=== PATIENT | female | born 2000 ===

== ENCOUNTER 2024-03-14 | Outpatient (REF) | payer SELFPAY ==
--- OUTSIDE RECORDS SUMMARY | 2024-03-15 13:36 | XMS_ITS | Encounter Summary ---
Author Organization [employer] [facility] Address [address] [place] [address] Care Team Providers Care Concrete Finisher Apprentice Name Role Phone [facility] Primary Care Provider [phone] Encounter Details Date Type Department Care Team [...] Description 05/22/2024 11:00 AM EDT Office Visit [facility] [address] [place] [address] Nikki Glez [address] [place] [address] documented as of this encounter Visit Diagnoses Not on filedocumented in this encounter Care Teams Concrete Finisher Apprentice Relationship Specialty Start Date End Date [facility] [address] [place] [address] PCP - General Family Medicine 05/21/22 03/13/24 documented as of this encounter
--- OUTSIDE RECORDS SUMMARY | 2024-03-15 13:36 | XMS_ITS | Encounter Summary ---
Author Organization [facility] Address [address] [place] [address] Care Team Providers Care Sign Hanger Name Role Phone Unavailable Primary Care Provider Unavailabl e Encounter Details Date Type Department Care Team (Late st Contact Info) Description 03/14/2024 Telephone [facility] [address] [place], [place] [phone] Aristides Gomez MD [address] [place], [place] [phone] Social History Tobacco Use Types Packs/Day Years [...] Description 05/22/2024 11:00 AM EDT Office Visit [facility] [address] [place] [address] Nikki Glez [address] [place], [place] [phone] documented as of this encounter Visit Diagnoses Not on filedocumented in this encounter
--- OUTSIDE RECORDS SUMMARY | 2024-03-15 13:37 | XMS_ITS | Encounter Summary ---
Author Organization [facility] Address [address] [address] [facility] [address] [address] [address] [place] [address] Care Team Providers Care Recruitment Specialist Name Role Phone Unavailable Primary Care Provider Unavailabl e Reason for Visit * Reason Comments Abdominal Pain Cough Encounter Details Date Type Department Care Team (Late st Contact Info) Description 03/14/2024 4:20 PM EST Office Visit [facility] [address] [place] [phone] Aristides Gomez MD [address] [place] [address] Influenza A (Primary Dx); Abdominal pain, unspecified [...] Healthy. No Hosp/Surg/Meds. NKDA. Transferring care from [place]. H/o and SAB. Has Nexplanon x 2 yrs. SH-Lives in [place] with mother. Review of Systems Constitutional: Negative [...] Description 05/22/2024 11:00 AM EDT Office Visit [facility] [address] [place] [address] [phone] [place], Nikki [address] [place], [place] [phone] Scheduled Orders Name Type Priority Associated Diagnoses Orde r Schedule RPR (Monitor) with Reflex to??Titer Lab Routine Screening examination for STI Expected: 03/14/2024, Expires: 03/14/2025 T-SPOT??.TB Lab Routine Rib pain Ordered: 03/14/2024 documented as of this encounter Procedures Procedure Name Priority Date/Time Associated Diagnosis Comments XR CHEST 2 VIEWS Routine 03/15/2024 9:06 AM EST Rib pain CBC WITH AUTO DIFFERENTIAL Routine 03/15/2024 8:45 AM EST Abdominal pain, unspecified abdominal location HEPATITIS C AB W/REFL TO HCV RNA, QN, PCR Routine 03/15/2024 8:45 AM EST Screening examination for STI IRON AND TOTAL IRON BINDING CAPACITY Routine 03/15/2024 8:45 AM EST Abdominal pain, unspecified abdominal location CHLAMYDIA/N. GONORRHOEAE RNA, TMA, UROGENITAL Routine 03/15/2024 8:45 AM EST Abdominal pain, unspecified abdominal location HEPATITIS B SURFACE ANTIGEN, EIA Routine 03/15/2024 8:45 AM EST Screening examination for STI HIV 1/2 ANTIGEN/ANTIBODY, FOURTH GENERATION W/RFL Routine 03/15/2024 8:45 AM EST Screening examination for STI C-REACTIVE PROTEIN Routine 03/15/2024 8: 45 AM EST Abdominal pain, unspecified abdominal location LIPASE Routine 03/15/2024 8:45 AM EST Abdominal pain, unspecified abdominal location COMPREHENSIVE METABOLIC PANEL Routine 03/15/2024 8:45 AM EST Abdominal pain, unspecified abdominal location POCT URINALYSIS DIPSTICK Routine 03/14/2024 4:43 PM [...] location documented in this encounter Results * XR Chest 2 Views (03/15/2024 9:06 AM EST) Anatomical Region Laterality Modality Chest Radiographic Zina ging 03/15/2024 9:06 AM EST Narrative 03/15/2024 9:46 AM EST ? [facility] ?[address] ?[place] [address] ?XRay Report ? Signed ? Patient: Sainz Kemp,Citlaly ?MR ?? #: [id number] ? : 2000 ?Acct:[id number] ? Age/Sex: 23 / F ?ADM Date: 02/05/25 ? Loc: HO.HHCL ? Attending Dr: Aristides Gomez MD ? Ordering Physician: ARISTIDES GOMEZ MD ?? Date of Service: 03/15/24 ?? Procedure(s): XR chest 2V ?? Accession Number(s): [id number] ? cc: ARISTIDES GOMEZ MD ? EXAMINATION: ?? XR CHEST ? CLINICAL INFORMATION: ?? Left chest/rib pain with inspiration. Recent coughing and Flu. ? COMPARISON: ?? None available. ? TECHNIQUE: ?? 2 views of the chest were obtained. ? FINDINGS: ?? No consolidation, pleural effusion or pneumothorax. ?? Cardiomediastinal silhouette is normal. ?? S-shaped curvature of the thoracic spine. ? XR/XR chest 2V ?? IMPRESSION: ?? No acute airspace disease. ?? Thoracic scoliosis, mild. ? Electronically signed by: ??Vicente Grace MD ??03/15/2024 09:43 AM ?? EST RP ? Dictated By: ?Vicente Otero MD ? Signed By: ?<Electronically signed by Vicente Barton MD in OV> ? 03/15/24 0943 ? DD/ 5 ? TD/TT: 03/15/24919 ? Tram Inspector: ? Procedure Note Dontommieter, Image - 03/15/2024 [place] [address] XRay Report Signed Patient: Citlaly OconnorMR #: [id number] : 2000Acct:[id number] Age/Sex: 23 FADM Date: 03/15/24 Loc: HO.HHCL Attending Dr: Aristides Gomez MD Ordering Physician: ARISTIDES GOMEZ MD Date of Service: 03/15/24 Procedure(s): XR chest 2V Accession Number(s): [id number] cc: ARISTIDES GOMEZ MD EXAMINATION: XR CHEST CLINICAL INFORMATION: Left chest/rib pain with inspiration. Recent coughing and Flu. COMPARISON: None available. TECHNIQUE: 2 views of the chest were obtained. FINDINGS: No consolidation, pleural effusion or pneumothorax. Cardiomediastinal silhouette is normal. S-shaped curvature of the thoracic spine. XR/XR chest 2V IMPRESSION: No acute airspace disease. Thoracic scoliosis, mild. Electronically signed by: Vicente Grace MD 03/15/2024 09:43 AM EST RP Dictated By: Vicente Otero MD Signed By: <Electronically signed by Vicente Barton MDin OV> 03/15/24942 DD/ 5 TD/TT: 03/15/24 0920 Tram Inspector: us Aristides Gomez MD IMG XR PROCEDURES Edited Result - Final * Lipase (03/15/2024 8:45 AM EST) Lipase 13 8 - 78 U/L [facility] Blood Venous blood specimen / Unknown 03/15/2024 8:45 AM EST 03/15/2024 10:51 AM EST us Aristides Gomez MD LAB BLOOD ORDERABLES Final Resu lt Performing Organization Address [facility] Co de Phone Number [facility] [address] [place] [phone] * C-reactive Protein (03/15/2024 8:45 AM EST) Pathologist [facility] C Reactive Protein 0.48 < or = 0.50 mg/dL [facility] Blood Venous blood specimen / Unknown 03/15/2024 8:45 AM EST 03/15/2024 10:51 AM EST us Aristides Gomez MD LAB BLOOD ORDERABLES Final Resu lt Performing Organization Address [facility] Phone Number [facility] [address] [place] [phone] * Hepatitis C Antibody with Reflex to HCV, RNA, Quantitative, Real-Time PCR (03/15/2024 8:45 AM EST) Pathologist [facility] Hepatitis C Antibody Nonreactive Nonreactive [facility] Comment:Antibodies to HCV no t detected; does not exclude early acuteHCV infection. Blood Venous blood specimen / Unknown 03/15/2024 8:45 AM EST 03/15/2024 10:51 AM EST us Aristides Gomez MD LAB BLOOD ORDERABLES Final Resu lt Performing Organization Address [facility] Co de Phone Number [facility] [address] [place] [phone] * Hepatitis B surface antigen (03/15/2024 8:45 AM EST) Hepatitis B Surface Ag Negative Negative [facility] Blood Venous blood specimen / Unknown 03/15/2024 8:45 AM EST 03/15/2024 10:51 AM EST us Aristides Gomez MD LAB BLOOD ORDERABLES Final Resu lt [facility] [address] [place] [phone] * HIV-1/2 Antigen and Antibodies, Fourth Generation, with Reflexes (03/15/2024 8:45 AM EST) Pathologist [facility] HIV AB/AG Nonreactive Nonreactive [facility] Comment:HIV-1 p24 Ag and/or HIV-1/HIV-2 Ab not detected.A test result that is nonreactive does not exclude thepossibility of exposure to or infection with HIV-1 and/orHIV-2. Nonreactive results in this assay for individualswith prior exposure to HIV-1 and/or HIV-2 may be due toantigen and antibody levels that are below the limit ofdetection of this assay.The AdRoll HIV Ag/Ab Combo assay result andsupplemental assay results should be interpreted inconjunction with the patient's clinical presentation,history and other laboratory results. If the results areinconsistent with clinical evidence, additional testing issuggested to confirm the result. Blood Venous blood specimen / Unknown 03/15/2024 8:45 AM EST 03/15/2024 10:51 AM EST us Aristides Gomez MD LAB BLOOD ORDERABLES Final Resu lt [facility] [address] [place] [phone] * (ABNORMAL) Iron And Total Iron Binding Capacity (03/15/2024 8:45 AM EST) Iron 40 30 - 160 mcg/dL [facility] Total Iron Binding Capacity 308 228 - 428 mcg/dL [facility] Percent Iron Saturation 13(L) 15 - 50 % [facility] Unsaturated Iron Binding 268 ug/dL [facility] Blood Venous blood specimen / Unknown 03/15/2024 8:45 AM EST 03/15/2024 10:51 AM EST us Aristides Gomez MD LAB BLOOD ORDERABLES Final Resu lt [facility] [address] [place], [place] [phone] * (ABNORMAL) Comprehensive Metabolic Panel (03/15/2024 8:45 AM EST) Pathologist [facility] Sodium 139 135 - 145 mmol/L [facility] Potassium 3.8 3.3 - 5.1 mmol/L [facility] Chloride 109(H) 96 - 108 mmol/L [facility] Carbon Dioxide 25 22 - 29 mmol/L [facility] Anion Gap 9(L) 12 - 20 [facility] Urea Nitrogen (BUN) 7(L) 9 - 16 mg/dL [facility] Creatinine, Serum 0.76 0.5 - 1.4 mg/dL [facility] Estimated Glomerular Filt Rate >60 [facility] Comment:Chronic Kidney Disea se: Estimated GFR < 60 mL/min/1.12q5Jnwwwy Kidney Disease: Estimated GFR < 15 mL/min/1.73m2 Glucose 114 60 - 115 mg/dL [facility] Calcium 9.0 8.4 - 10.2 mg/dL [facility] Bilirubin, Total 0.2 0.0 - 1.0 mg/dL [facility] Aspartate Amino Transferase 23 5 - 31 U/L [facility] Alanine Aminotransferase 16 0 - 31 U/L [facility] Total Protein 7.4 6.5 - 8.0 g/dL [facility] Albumin Level 4.3 3.5 - 5.0 g/dL [facility] Alkaline Phosphatase 67 39 - 117 U/L [facility] Blood Venous blood specimen / Unknown 03/15/2024 8:45 AM EST 03/15/2024 10:51 AM EST Aristides Gomez MD LAB BLOOD ORDERABLES Final Resu lt [facility] [address] [place] [address] [phone] * (ABNORMAL) CBC auto differential (03/15/2024 8:45 AM EST) White Blood Count 4.9 4.8 - 10.8 X10*3/uL [facility] Red Blood Count 4.75 4.20 - 5.50 X10*6/uL [facility] Hemoglobin 14.0 12.0 - 16.0 g/dl [facility] Hematocrit 42.3 37.0 - 47.0 % [facility] Mean Corpuscular Volume 89.1 80.0 - 98.0 fL [facility] Mean Corpuscular Hemoglobin 29.5 27.0 - 33.0 pg [facility] Mean Corpuscular HGB Conc 33.1 31.0 - 35.0 g/dl [facility] Red Cell Distribution Width 12.8 11.0 - 16.0 % [facility] Platelet Count 186 160 - 400 X10*3/uL [facility] Mean Platelet Volume 11.0 9.4 - 12.3 fL [facility] Neutrophils Percent Auto 56.0 45 - 73 % [facility] Imm Gran Pct Auto 0.2 0.0 - 0.4 % [facility] Lymphocytes Percent Auto 27.0 20 - 40 % [facility] Monocytes Percent Auto 8.2 2 - 11 % [facility] Eosinophils Percent Auto 8.4(H) 0 - 4 % [facility] Basophils Percent Auto 0.2 0 - 2 % [facility] NRBC Pct Auto 0.0 0.0 - 0.2 /100WBC [facility] Neutrophils Absolute Auto 2.7 2.0 - 8.3 x10*3/uL [facility] Imm Gran Abs Auto 0.01 0.00 - 0.03 X10*3/uL [facility] Lymphocytes Absolute Auto 1.3 1.2 - 4.9 X10*3/uL [facility] Monocytes Absolute Auto 0.4 0.1 - 1.2 X10*3/uL [facility] Eosinophils Absolute Auto 0.4 0.0 - 0.4 X10*3/uL [facility] Basophils Absolute Auto 0.0 0.0 - 0.2 X10*3/uL [facility] NRBC Abs Auto 0.000 0.0 - 0.012 X10*3/uL [facility] Blood Venous blood specimen / Unknown 03/15/2024 8:45 AM EST 03/15/2024 10:51 AM EST us Aristides Gomez MD LAB BLOOD ORDERABLES Final Resu lt [facility] [address] [place] [address] [phone] * Chlamydia/N. Gonorrhoeae RNA, TMA, Urogenitial (03/15/2024 8:45 AM EST) CT PCR NOT DETECTED Not Detect. [facility] Comment:A not detected test result does not exclude the possibilityof infection because test results can be affected byimproper specimen collection, concurrent antibiotic therapy,or the number of organisms in the specimen which may bebelow the sensitivity of the test. As with many diagnostictests, results from the Xpert CT/NG assay should beinterpreted in conjunction with other laboratory andclinical data available to the clinician.Xpert CT/NG performance has not been evaluated in patientsless than 14 years of age. The assay should not be used forthe evaluationof suspected sexual abuse or for other medico-legalindications. Additional testing is recommended in anycircumstance when false positive or false negative resultscould lead to adverse medical, social or psychologicalconsequences. NG PCR NOT DETECTED Not Detect. [facility] Comment:A not detected test result does not exclude the possibilityof infection because test results can be affected byimproper specimen collection, concurrent antibiotic therapy,or the number of organisms in the specimen which may bebelow the sensitivity of the test. As with many diagnostictests, results from the Xpert CT/NG assay should beinterpreted in conjunction with other laboratory andclinical data available to the clinician.Xpert CT/NG performance has not been evaluated in patientsless than 14 years of age. The assay should not be used forthe evaluationof suspected sexual abuse or for other medico-legalindications. Additional testing is recommended in anycircumstance when false positive or false negative resultscould lead to adverse medical, social or psychologicalconsequences. Swab Vaginal structure / Unknown 03/15/2024 8:45 AM EST 03/15/2024 10:56 AM EST Narrative [facility] - 03/15/2024 1:01 PM EST Urine us Aristides Gomez MD LAB MICROBIOLOGY - [facility] Final Result [facility] [address] [place] [address] [phone] * (ABNORMAL) POCT urinalysis dipstick manually resulted [...] ID NOW (03/14/2024 4:02 PM EST) Pathologist [facility] Coronavirus Antigen PCR Negative Negative, Indeterminate, None Detected, Invalid, Specimen unsatisfactory for evaluation, Weakly Positive Swab 03/14/2024 4:02 PM EST us Aristides Gomez MD POINT OF CARE TEST ENTER/EDIT O RDERABLES Final Result * (ABNORMAL) Influenza A (ID NOW Rapid Molecular) (03/14/2024 4:02 PM EST) Pathologist [facility] Influenza A Positive( A) Negative, Indeterminate [facility] Swab 03/14/2024 4:02 PM EST us Aristides Gomez MD POINT OF CARE TEST ENTER/EDIT O RDERABLES Final Result [facility] [address] [place] [phone] * Influenza B (ID NOW Rapid Molecular) (03/14/2024 4:02 PM EST) Pathologist [facility] Influenza B Negative Negative, Indeterminate [facility] Swab 03/14/2024 4:02 PM EST us Aristides Gomez MD POINT OF CARE TEST ENTER/EDIT O RDERABLES Final Result Performing Organization Address [facility]/ZIP Co de Phone Number [facility] [address] [place] [phone] documented in this encounter Visit Diagnoses Diagnosis Influenza A- Primary Influenza with other respiratory manifestations Abdominal pain, unspecified abdominal location Rib pain Unspecified chest pain Screening examination for STI documented in this encounter
--- OUTSIDE RECORDS SUMMARY | 2024-03-15 13:37 | XMS_ITS | Encounter Summary ---
Author Organization [facility] Address [address] [place] [address] Care Team Providers Care Enchilada Maker Name Role Phone Unavailable Primary Care Provider Unavailabl e Reason for Visit * Reason Onset Date Comments New patient appt. 03/15/2024 Encounter Details Date Type Department Care Team ([facility] st Contact Info) Description 03/15/2024 Telephone [facility] [address] [place], [place] [phone] Jasen Jose MD [address] [place], [place] [phone] New patient appt. Social History Tobacco Use [...] 03/15/2024 8:29 AM EST Patient added to [facility] New patient wait list as of 03/14/24. [...] Description 05/22/2024 11:00 AM EDT Office Visit [facility] [address] [place] [address] Nikki Glez [address] [place] [phone] documented as of this encounter Visit Diagnoses Not on filedocumented in this encounter
--- OUTSIDE RECORDS SUMMARY | 2024-03-15 13:37 | XMS_ITS | Encounter Summary ---
Author Organization [facility] Address [address] [place] [address] Care Team Providers Care Bicycle Assembler Name Role Phone Unavailable Primary Care [...] Description 05/22/2024 11:00 AM EDT Office Visit [facility] [address] [place], [place] [phone] Nikki Glez [address] [place], [place] [phone] documented as of this encounter Visit Diagnoses Not on filedocumented in this encounter
--- OUTSIDE RECORDS SUMMARY | 2024-03-15 13:37 | XMS_ITS | Clinical Summary ---
Author Organization [employer] [facility] Address [address] [place] [address] Care Team Providers Care Supervisor Prop Making Name Role Phone Unavailable Primary Care Provider [...] Type Department Care Team Description 03/15/2024 Telephone [facility] [address] [place] [phone] Jasen Jose MD New patient appt. 03/14/2024 4:20 PM EST Office Visit [facility] [address] [place] [phone] Aristides Gomez MD Influenza A (Primary Dx); Abdominal pain, unspecified abdominal location; Rib pain; Screening examination for STI 03/14/2024 Telephone [facility] [address] [place] [phone] Aristides Gomez MD 03/14/2024 Travel from Last [...] Description 05/22/2024 11:00 AM EDT Office Visit [facility] [address] [place] [phone] Nikki Glez [address] [place] [phone] Health Maintenance Due Date Last Done Comments Chlamydia and Gonorrhea Screening 2002 03/15/2024 Depression Screening 2002 SDOH Screening 2002 Alcohol/Substance Use Screening 2014 Family Planning (PISQ) 2017 HPV Vaccines (1 - 3-dose series) 2017 Hepatitis B Vaccines (1 of 3 - 19+ 3-dose series) 2021 Pap Smear 08/04/2023 COVID-19 Vaccine ( season) 2023 07/18/2020, 06/27/2020 Influenza Vaccine (#1) [...] older (1 - 1-dose 75+ series) 2077 HIV Screening Completed 03/15/2024 Hepatitis C Screening Completed 03/15/2024 HIB Vaccines Aged Out No longer eligi [...] Routine 03/15/2024 9:06 AM EST Rib pain LIPASE Routine 03/15/2024 8:45 AM EST Abdominal pain, unspecified abdominal location C-REACTIVE PROTEIN Routine 03/15/2024 8: 45 AM [...] AM EST Abdominal pain, unspecified abdominal location CBC WITH AUTO DIFFERENTIAL Routine 03/15/2024 8:45 AM EST Abdominal pain, unspecified abdominal location HEPATITIS B SURFACE ANTIGEN, EIA Routine 03/15/2024 8:45 AM EST Screening examination for STI CHLAMYDIA/N. GONORRHOEAE RNA, TMA, UROGENITAL Routine 03/15/2024 [...] Recently Relevant to Health Maintenance Results * XR Chest 2 Views (03/15/2024 9:06 AM EST) Anatomical Region Laterality Modality Chest Radiographic Zina ging 03/15/2024 9:06 AM EST Narrative 03/15/2024 9:46 AM EST ? [facility] ?[address] ?[place] [address] ?XRay Report ? Signed ? Patient: Citlaly Oconnor ?MR ?? #: [id number] ? : 2000 ?Acct:[id number] ? Age/Sex: 23 / F ?ADM Date: 03/15/24 ? Loc: HO.[facility]CL ? Attending Dr: Aristides Gomez MD ? Ordering Physician: ARISTIDES GOMEZ MD ?? Date of Service: 03/15/24 ?? Procedure(s): XR chest 2V ?? Accession Number(s): [id number] ? cc: ARISTIDES GOMEZ MD ? EXAMINATION: [...] in OV> ? 03/15/24 0943 ? DD/ 0906 ? TD/TT: 03/15/24 0920 ? Pharmacoepidemiologist: ? Procedure Note Natalee, Xochilt - 03/15/2024 [id number] [place] [address] XRay Report Signed Patient: Citlaly OconnorMR #: [id number] : 2000Acct:[id number] Age/Sex: 23 / FADM Date: 03/15/24 Loc: .[facility] Attending Dr: Aristides Gomez MD Ordering Physician: ARISTIDES GOMEZ MD Date of Service: 03/15/24 Procedure(s): XR chest 2V Accession Number(s): [id number] cc: ARISTIDES GOMEZ MD EXAMINATION: XR CHEST [...] Vicente Grace MD 03/15/2024 09:43 AM EST Dictated By: Vicente Otero MD Signed By: <Electronically signed by Vicente Barton MDin OV> 03/15/2443 DD/ 0906 TD/TT: 03/15/24 0920 Pharmacoepidemiologist: Aristides Gomez MD IMG XR PROCEDURES Edited Result - Final * (ABNORMAL) CBC auto differential (03/15/2024 8:45 AM EST) White Blood Count 4.9 4.8 - 10.8 X10*3/uL [facility] Red Blood Count 4.75 4.20 - 5.50 X10*6/uL [facility] Hemoglobin 14.0 12.0 - 16.0 g/dl [facility] Hematocrit 42.3 37.0 - 47.0 % [facility] Mean Corpuscular Volume 89.1 80.0 - 98.0 fL [facility] Mean Corpuscular Hemoglobin 29.5 27.0 - 33.0 pg [facility] Mean Corpuscular HGB Conc 33.1 31.0 - 35.0 g/dl [facility] Red Cell Distribution Width 12.8 11.0 - 16.0 % [facility] Platelet Count 186 160 - 400 X10*3/uL [facility] Mean Platelet Volume 11.0 9.4 - 12.3 fL [facility] Neutrophils Percent Auto 56.0 45 - 73 % [facility] Imm Gran Pct Auto 0.2 0.0 - 0.4 % [facility] Lymphocytes Percent Auto 27.0 20 - 40 % [facility] Monocytes Percent Auto 8.2 2 - 11 % [facility] Eosinophils Percent Auto 8.4(H) 0 - 4 % [facility] Basophils Percent Auto 0.2 0 - 2 % [facility] NRBC Pct Auto 0.0 0.0 - 0.2 /100WBC [facility] Neutrophils Absolute Auto 2.7 2.0 - 8.3 x10*3/uL [facility] Imm Gran Abs Auto 0.01 0.00 - 0.03 X10*3/uL [facility] Lymphocytes Absolute Auto 1.3 1.2 - 4.9 X10*3/uL [facility] Monocytes Absolute Auto 0.4 0.1 - 1.2 X10*3/uL [facility] Eosinophils Absolute Auto 0.4 0.0 - 0.4 X10*3/uL [facility] Basophils Absolute Auto 0.0 0.0 - 0.2 X10*3/uL [facility] NRBC Abs Auto 0.000 0.0 - 0.012 X10*3/uL [facility] Blood Venous blood specimen / Unknown 03/15/2024 8:45 AM EST 03/15/2024 10:51 AM EST us Aristides Gomez MD LAB BLOOD ORDERABLES Final Resu lt [facility] [address] [place] [phone] * Hepatitis C Antibody with Reflex to HCV, RNA, Quantitative, Real-Time PCR (03/15/2024 8:45 AM EST) [facility] Hepatitis C Antibody Nonreactive Nonreactive [facility] Comment:Antibodies to HCV no t detected; does not exclude early acuteHCV infection. Blood Venous blood specimen / Unknown 03/15/2024 8:45 AM EST 03/15/2024 10:51 AM EST us Aristides Gomez MD LAB BLOOD ORDERABLES Final Resu lt Performing Organization Address [facility] de Phone Number [facility] [address] [place] [phone] * (ABNORMAL) Iron And Total Iron Binding Capacity (03/15/2024 8:45 AM EST) [facility] Iron 40 30 - 160 mcg/dL [facility] Total Iron Binding Capacity 308 228 - 428 mcg/dL [facility] Percent Iron Saturation 13(L) 15 - 50 % [facility] Unsaturated Iron Binding 268 ug/dL [facility] Blood Venous blood specimen / Unknown 03/15/2024 8:45 AM EST 03/15/2024 10:51 AM EST us Aristides Gomez MD LAB BLOOD ORDERABLES Final Resu lt Performing Organization Address [facility] de Phone Number [facility] [address] [place] [phone] * Chlamydia/N. Gonorrhoeae RNA, TMA, Urogenitial (03/15/2024 8:45 AM EST) [facility] CT PCR NOT DETECTED Not Detect. [facility] Comment:A not detected test result [...] psychologicalconsequences. NG PCR NOT DETECTED Not Detect. [facility] Comment:A not detected test result [...] AM EST 03/15/2024 10:56 AM EST Narrative [facility] - 03/15/2024 1:01 PM EST Urine us Aristides Gomez MD LAB MICROBIOLOGY - GENERAL DAVEY BUSTOS Final Result [facility] [address] [place] [phone] * Hepatitis B surface antigen (03/15/2024 8:45 AM EST) Hepatitis B Surface Ag Negative Negative [facility] Blood Venous blood specimen / Unknown 03/15/2024 8:45 AM EST 03/15/2024 10:51 AM EST us Aristides Gomez MD LAB BLOOD ORDERABLES Final Resu lt Performing Organization Address [facility]/ZIP Co de Phone Number [facility] [address] [place] [phone] * HIV-1/2 Antigen and Antibodies, Fourth Generation, with Reflexes (03/15/2024 8:45 AM EST) HIV AB/AG Nonreactive Nonreactive [facility] Comment:HIV-1 p24 Ag and/or HIV-1/HIV-2 Ab not detected.A test result that is nonreactive does not exclude thepossibility of exposure to or infection with HIV-1 and/orHIV-2. Nonreactive results in this assay for individualswith prior exposure to HIV-1 and/or HIV-2 may be due toantigen and antibody levels that are below the limit ofdetection of this assay.The Reeher HIV Ag/Ab Combo assay result andsupplemental assay results should be interpreted inconjunction with the patient's clinical presentation,history and other laboratory results. If the results areinconsistent with clinical evidence, additional testing issuggested to confirm the result. Blood Venous blood specimen / Unknown 03/15/2024 8:45 AM EST 03/15/2024 10:51 AM EST us Aristides Gomez MD LAB BLOOD ORDERABLES Final Resu lt Performing Organization Address [facility] Co de Phone Number [facility] [address] [place] [phone] * C-reactive Protein (03/15/2024 8:45 AM EST) C Reactive Protein 0.48 < or = 0.50 mg/dL [facility] Blood Venous blood specimen / Unknown 03/15/2024 8:45 AM EST 03/15/2024 10:51 AM EST us Aristides Gomez MD LAB BLOOD ORDERABLES Final Resu lt Performing Organization Address City/[facility]/ZIP Co de Phone Number [facility] [address] [place] [phone] * Lipase (03/15/2024 8:45 AM EST) Lipase 13 8 - 78 U/L [facility] Blood Venous blood specimen / Unknown 03/15/2024 8:45 AM EST 03/15/2024 10:51 AM EST Aristides Gomez MD LAB BLOOD ORDERABLES Final Resu lt [facility] [address] [place] [phone] * (ABNORMAL) Comprehensive Metabolic Panel (03/15/2024 8:45 AM EST) Pathologist [facility] Sodium 139 135 - 145 mmol/L [facility] Potassium 3.8 3.3 - 5.1 mmol/L [facility] Chloride 109(H) 96 - 108 mmol/L [facility] Carbon Dioxide 25 22 - 29 mmol/L [facility] Anion Gap 9(L) 12 - 20 [facility] Urea Nitrogen (BUN) 7(L) 9 - 16 mg/dL [facility] Creatinine, Serum 0.76 0.5 - 1.4 mg/dL [facility] Estimated Glomerular Filt Rate >60 [facility] Comment:Chronic Kidney Disea se: Estimated GFR < 60 mL/min/[id number] Kidney Disease: Estimated GFR < 15 mL/min/1.73m2 Glucose 114 60 - 115 mg/dL [facility] Calcium 9.0 8.4 - 10.2 mg/dL [facility] Bilirubin, Total 0.2 0.0 - 1.0 mg/dL [facility] Aspartate Amino Transferase 23 5 - 31 U/L [facility] Alanine Aminotransferase 16 0 - 31 U/L [facility] Total Protein 7.4 6.5 - 8.0 g/dL [facility] Albumin Level 4.3 3.5 - 5.0 g/dL [facility] Alkaline Phosphatase 67 39 - 117 U/L [facility] Blood Venous blood specimen / Unknown 03/15/2024 8:45 AM EST 03/15/2024 10:51 AM EST us Aristides Gomez MD LAB BLOOD ORDERABLES Final Resu lt Performing Organization Address [facility]/ZIP Co de Phone Number [facility] [address] [place] [phone] * (ABNORMAL) POCT urinalysis dipstick manually [...] PM EST) Influenza B Negative Negative, Indeterminate [facility] Swab 03/14/2024 4:02 PM EST us Aristides Gomez MD POINT OF CARE TEST ENTER/EDIT O RDERABLES Final Result Performing Organization Address [facility]/ZIP Co de Phone Number [facility] [address] [place] [address] [phone] * (ABNORMAL) Influenza A (ID NOW Rapid Molecular) (03/14/2024 4:02 PM EST) Influenza A Positive( A) Negative, Indeterminate [facility] Swab 03/14/2024 4:02 PM EST us Aristides Gomez MD POINT OF CARE TEST ENTER/EDIT O RDERABLES Final Result [facility] [address] [place] [phone] * POCT COVID-19 Ag Mijares ID NOW (03/14/2024 4:02 PM EST) Coronavirus Antigen PCR Negative Negative, Indeterminate, None [...] from Last 3 Months Insurance , [address] , [address] [address] [facility] FULL DENTAL-[facility] MEDICAID STAND ADULT DENTAL-[place] [employer] LIMITED ADULT DENTAL - [facility] FULL (MEDICAID)
== END 2024-03-14 00:01 | disposition home or self-care (01) ==
LOC: HO.HHCLNP
PROVIDERS: Visit Provider Pediatrics
DX: Z13.89 Encounter for screening for other disorder (principal)

== ENCOUNTER 2024-03-15 08:40 | Outpatient (REF) | payer SELFPAY ==
--- NOTE | ~2024-03-15 | XR_ITS ---
EXAMINATION: XR CHEST CLINICAL INFORMATION: Left chest/rib pain with inspiration. Recent coughing and Flu. COMPARISON: None available. TECHNIQUE: 2 views of the chest were obtained. FINDINGS: No consolidation, pleural effusion or pneumothorax. Cardiomediastinal silhouette is normal. S-shaped curvature of the thoracic spine. XR/XR chest 2V IMPRESSION: No acute airspace disease. Thoracic scoliosis, mild. Electronically signed by: Vicente Grace MD 03/15/2024 09:43 AM [place]
--- OUTSIDE RECORDS SUMMARY | 2024-03-15 08:44 | XMS_ITS | Encounter Summary ---
Author Organization [facility] [facility] Address [address] [facility] [address] [place] [address] Care Team Providers Care Sales Estimator Name Role Phone [facility] Primary Care Provider [phone] Encounter Details Date Type Department Care Team (Latest Contact Info) Description 07/31/2021 Abstract [facility] Dental, Provider, DDS Social History Tobacco Use Types Packs/Day Years Used Date Smoking Tobacco: Never Assessed Comments Unknown Sex and Gender Information Value Date Recorded Sex Assigned at Female 04/01/2022 3:22 PM EST Legal Sex Female 5:36 PM EDT Gender Identity Female 04/01/2022 3:22 PM EST Sexual Orientation Don't know 03/20/2023 10 :28 AM EST Sexual Orientation Straight 03/20/2023 10 :28 AM EST documented as of this encounter Plan of Treatment Upcoming Encounters Date Type Department Care Team (Late st Contact Info) Description 05/22/2024 11:00 AM EDT Office Visit [facility] [address] [place] [address] Nikki Glez [address] [place] [address] documented as of this encounter Visit Diagnoses Not on filedocumented in this encounter Care Teams Sales Estimator Relationship Specialty Start Date [facility] [address] [place] [address] PCP - General Family Medicine 05/21/22 03/13/24 documented as of this encounter
--- OUTSIDE RECORDS SUMMARY | 2024-03-15 08:44 | XMS_ITS | Clinical Summary ---
Author Organization [employer] [facility] Address [address] [facility] [address] [place] [address] Care Team Providers Care Patient Information Coordinator Name Role Phone Unavailable Primary Care Provider Unavailabl e Allergies No known active allergies Medications etonogestrel-eluti ng 68 mg contraceptive implant 1 each by Implant route 1 (one) time. Active acetaminophen (Tylenol Extra Strength) 500 MG tabletIndications: Rib pain 1 tab q 4 hours prn fever or pain 30 tablet 1 Active Active Problems No known active problems Resolved Problems Problem Noted Date Diagnosed Date Resolved Date Miscarriage 11/09/2019 03/14/2024 Encounters Date Type Department Care Team Description 03/15/2024 Telephone [facility] [address] [place] [phone] Jasen Jose MD New patient appt. 03/14/2024 4:20 PM EST Office Visit [facility] [address] [place] [phone] Aristides Gomez MD Influenza A (Primary Dx); Abdominal pain, unspecified abdominal location; Rib pain; Screening examination for STI 03/14/2024 Telephone [facility] [address] [place] [phone] Aristides Gomez MD 03/14/2024 Travel from Last 3 Months Immunizations Name Administration Dates Next Due INFLUENZA INJECTABLE QUADRIV ALANT CCIIV4 MDCK Multi-dose vial 03/17/2023 Pfizer Covid-19 Vaccine 12+ 07/18/2020, Tdap 03/17/2023 Family History Medical History Relation Name Comments Diabetes Maternal Grandmother Heart disease Maternal Grandmother Diabetes Mother Hypothyroidism Mother Breast cancer Mother's Sister Relation Name Status Comments Maternal Grandmother Mother Mother's Sister Social History Tobacco Use Types Packs/Day Years Used Date Smoking Tobacco: Never Passive Smoke Exposure: Never Smokeless Tobacco: Never Tobacco Cessation:Counseling Given: Not Answered Alcohol Use Standard Drinks/Week Comments Never 0 (1 standard drink = 0.6 oz pur e alcohol) Comments Unknown Sex and Gender Information Value Date Recorded Sex Assigned at Female 04/01/2022 3:22 PM EST Legal Sex Female 5:36 PM EDT Gender Identity Female 04/01/2022 3:22 PM EST Sexual Orientation Don't know 03/20/2023 10 :28 AM EST Sexual Orientation Straight 03/20/2023 10 :28 AM EST Last Filed Vital Signs Vital Sign Reading Time Taken Comments Blood Pressure 120/70 03/14/2024 3:55 PM EST Pulse 102 03/14/2024 3:55 PM EST Temperature 36.7 ??C (98 ??F) 03/14/2024 3:55 PM EST Respiratory Rate 19 03/14/2024 3:55 PM EST Oxygen Saturation 97% 03/14/2024 3:55 PM EST Inhaled Oxygen Concentration - - Weight 78.5 kg (173 lb) 03/14/2024 3:55 PM EST Height 160.3 cm (5' 3.1 ) 03/14/2024 3:55 PM EST Body Mass Index 30.55 03/14/2024 3:55 PM EST Plan of Treatment Upcoming Encounters Date Type Department Care Team (Late st Contact Info) Description 05/22/2024 11:00 AM EDT Office Visit [facility] [address] [place] [phone] Nikki Glez [address] [place] [phone] Health Maintenance Due Date Last Done Comments Chlamydia and Gonorrhea Screening 2002 Depression Screening 2002 HIV Screening 2002 SDOH Screening 2002 Alcohol/Substance Use Screening 2014 Family Planning (PISQ) 2017 HPV Vaccines (1 - 3-dose series) 2017 Hepatitis C Screening 2020 Hepatitis B Vaccines (1 of 3 - 19+ 3-dose series) 2021 Pap Smear 08/04/2023 COVID-19 Vaccine ( - season) 2023 07/18/2020, 06/27/2020 Influenza Vaccine (#1) 2023 03/17/2023 Dental X-Ray: Bitewings 03/17/2024 03/16/19 24, 07/31/2021, 07/26/2017 Dental Oral Exam 05/18/2024 11/17/2023, 07/2023, 07/31/2021, Additional history exists Dental Prophylaxis 05/18/2024 11/17/2023, 0 03/16/2023, 07/31/2021, Additional history exists Tobacco Screening 03/14/2025 03/14/2024 Dental X-Ray: Full Mouth 11/17/2026 024, 07/31/2021, 07/26/2017 DTaP/Tdap/Td Vaccines (2 - Td or Tdap) 03/17/2033 03/17/2023 Zoster Vaccines (1 of 2) 2052 RSV Patients and Patients Aged 60 years or older (1 - 1-dose 75+ series) 2077 HIB Vaccines Aged Out No longer eligi ble based on patient's age to complete this topic Hepatitis A Vaccines Aged Out No long er eligible based on patient's age to complete this topic IPV Vaccines Aged Out No longer eligi ble based on patient's age to complete this topic Meningococcal Vaccine Aged Out No amber henry eligible based on patient's age to complete this topic Pneumococcal Vaccine: Pediatrics (0 to 5 Years) and At-Risk Patients (6 to 49) Years) Aged Out No longer eligible based on patient's age to complete this topic RSV under 20 months Aged Out No longe r eligible based on patient's age to complete this topic Rotavirus Vaccines Aged Out No longer eligible based on patient's age to complete this topic Procedures Procedure Name Priority Date/Time Associated Diagnosis Comments POCT URINALYSIS DIPSTICK Routine 03/14/2024 4:43 PM EST Abdominal pain, unspecified abdominal location POCT , URINE Routine 03/14/2024 4:02 PM EST Abdominal pain, unspecified abdominal location POCT COVID-19 AG MIJARES ID NOW Routine 03/14/2024 4:02 PM EST Influenza A POCT INFLUENZA A (ID NOW RAPID MOLECULAR) Routine 03/14/2024 4:02 PM EST Influenza A POCT INFLUENZA B (ID NOW RAPID MOLECULAR) Routine 03/14/2024 4:02 PM EST Influenza A PROPHYLAXIS - ADULT Routine 11/17/2023 1 :00 PM EDT PANORAMIC RADIOGRAPHIC IMAGE Routine 11/17/2023 1:00 PM EDT COMPREHENSIVE ORAL EVALUATION - NEW OR ESTABLISHED PATIENT Routine 11/17/2023 1:00 PM EDT BITEWINGS - 4 RADIOGRAPHIC IMAGES Routine 03/16/2023 10:00 AM EST from Last 3 Months or Most Recently Relevant to Health Maintenance Results * (ABNORMAL) POCT urinalysis dipstick manually resulted (03/14/2024 4:43 PM EST) Color, UA Yellow Clarity, UA Clear Glucose, UA Negative Bilirubin, UA Moderate Comment:small Ketones, UA Positive Comment:40mg/dL Spec Grav, UA 1.030 Blood, UA Positive(A) Negative, None Detected Comment:trace-intact pH, UA 5.5 Protein, UA Trace Urobilinogen, UA 0.2 Leukocytes, UA Negative Negative, Rare, Trace Nitrite, UA Negative Negative, None Detected Appearance, UA clear QC Media Lot # [id number] Lot# Expiration Date Urine 03/14/2024 4:43 PM EST us Aristides Gomez MD POINT OF CARE TEST ENTER/EDIT O RDERABLES Final Result * Influenza B (ID NOW Rapid Molecular) (03/14/2024 4:02 PM EST) Influenza B Negative Negative, Indeterminate [facility] Swab 03/14/2024 4:02 PM EST us Aristides Gomez MD POINT OF CARE TEST ENTER/EDIT O RDERABLES Final Result [facility] [address] [place] [phone] * (ABNORMAL) Influenza A (ID NOW Rapid Molecular) (03/14/2024 4:02 PM EST) Influenza A Positive( A) Negative, Indeterminate [facility] Swab 03/14/2024 4:02 PM EST us Aristides Gomez MD POINT OF CARE TEST ENTER/EDIT O RDERABLES Final Result Performing Organization Address City/[facility]/ZIP Co de Phone Number [facility] [address] [place] [address] [phone] * POCT COVID-19 Ag Mijares ID NOW (03/14/2024 4:02 PM EST) Pathologist [facility] Coronavirus Antigen PCR Negative Negative, Indeterminate, None Detected, Invalid, Specimen unsatisfactory for evaluation, Weakly Positive Swab 03/14/2024 4:02 PM EST us Aristides Gomez MD POINT OF CARE TEST ENTER/EDIT O RDERABLES Final Result * POCT , urine manually resulted (03/14/2024 4:02 PM EST) Preg Test, Ur Negative Negative, Indeterminate, None Detected, Invalid, Specimen unsatisfactory for evaluation, Weakly Positive Urine 03/14/2024 4:02 PM EST us Aristides Gomez MD POINT OF CARE TEST ENTER/EDIT O RDERABLES Final Result from Last 3 Months Insurance , [address] [address] HSN FULL [facility] LIMITED HSN FULL DENTAL-[facility] MEDICAID [place] [address] [place] [phone] DENTAL-[facility] MEDICAID LIMITED ADULT DENTAL - HSN FULL (MEDICAID)
--- OUTSIDE RECORDS SUMMARY | 2024-03-15 08:44 | XMS_ITS | Encounter Summary ---
Author Organization [employer] [facility] Address [address] [facility] [address] [place] [address] Care Team Providers Care Public Health Technician Name Role Phone Unavailable Primary Care Provider Unavailabl e Reason for Visit * Reason Onset Date Comments New patient appt. 03/15/2024 Encounter Details Date Type Department Care Team ([facility] st Contact Info) Description 03/15/2024 Telephone [facility] [address] [place], [place] [phone] Jasen Jose MD [address] [place], [place] [phone] New patient appt. Social History Tobacco Use Types Packs/Day Years Used Date Smoking Tobacco: Never Passive Smoke Exposure: Never Smokeless Tobacco: Never Alcohol Use Standard Drinks/Week Comments Never 0 [...] AM EST documented as of this encounter Miscellaneous Notes * Telephone Encounter - Marylin Lane - 03/15/2024 8:29 AM EST Patient added to [facility] New patient wait list as of 03/14/24. * Telephone Encounter - Marylin Lane - 03/15/2024 8:29 AM EST ----- Message from Aristides Gomez MD sent at 03/14/2024 6:50 PM EST ----- Regarding: New Patient Appt Please Thank you ! documented in this encounter Plan of Treatment Upcoming Encounters Date Type Department Care Team (Late st Contact Info) Description 05/22/2024 11:00 AM EDT Office Visit [facility] [address] [place] [address] Nikki Glez [address] [place] [address] documented as of this encounter Visit Diagnoses Not on filedocumented in this encounter
--- OUTSIDE RECORDS SUMMARY | 2024-03-15 08:44 | XMS_ITS | Encounter Summary ---
Author Organization [facility] Address [address] [facility] [facility] [address] [place] [address] Care Team Providers Care Brush Holder Assembler Name Role Phone Unavailable Primary Care Provider Unavailabl e Encounter Details Date Type Department Care Team (Latest Contact Info) Description 03/14/2024 Travel Social History Tobacco Use Types Packs/Day Years [...] Description 05/22/2024 11:00 AM EDT Office Visit [facility] [address] [place], [place] [phone] Nikki Glez [address] [place], [place] [phone] documented as of this encounter Visit Diagnoses Not on filedocumented in this encounter
--- OUTSIDE RECORDS SUMMARY | 2024-03-15 08:44 | XMS_ITS | Encounter Summary ---
Author Organization [employer] [facility] Address [address] [facility] [address]t [place] [address] Care Team Providers Care Street Light Repairer Name Role Phone Unavailable Primary Care Provider Unavailabl e Encounter Details Date Type Department Care Team (Late st Contact Info) Description 03/14/2024 Telephone [facility] [address] [place], [place] [phone] Aristides Gomez MD [address] [place], [place] [phone] Social History Tobacco Use Types Packs/Day Years [...] encounter Miscellaneous Notes * Telephone Encounter - Carol Ann Gary [place] - 03/14/2024 4:16 PM EST PT needs a new pt appt documented in this encounter Plan of Treatment Upcoming Encounters Date Type Department Care Team (Late st Contact Info) Description 05/22/2024 11:00 AM EDT Office Visit [facility] [address] [place] [address] Nikki Glez [address] [place], [place] [phone] documented as of this encounter Visit Diagnoses Not on filedocumented in this encounter
--- OUTSIDE RECORDS SUMMARY | 2024-03-15 08:45 | XMS_ITS | Encounter Summary ---
Author Organization [employer] [facility] Address [address] [place] [address] Care Team Providers Care Bench Worker Name Role Phone Unavailable Primary Care Provider Unavailabl e Reason for Visit * Reason Comments Abdominal Pain Cough Encounter Details Date Type Department Care Team (Late st Contact Info) Description 03/14/2024 4:20 PM EST Office Visit [facility] [address] [place] [phone] Aristides Gomez MD [address] [place] [address] Influenza A (Primary Dx); Abdominal pain, unspecified abdominal location; Rib pain; Screening examination for STI Social History Tobacco Use Types Packs/Day Years [...] AM EST documented as of this encounter Last Filed Vital Signs Vital Sign Reading [...] Mass Index 30.55 03/14/2024 3:55 PM EST documented in this encounter Progress Notes * Josefa Cosby - 03/14/2024 4:20 PM EST Subjective Patient ID: Citlaly Kemp V is a 23 y.o. female who presents for Abdominal Pain and Cough. New patient. Here in [facility] today with lower abdominal pain, left side pain and cough. Here with mother. Has had cough for 2 months. It has been improving. 2 weeks ago started with intermittent left rib pain with inspiration. No trauma. 4 days ago started with lower abdominal pain and vomiting (resolved). Also with cough 4 days ago. Has had some pain with urination, denies dysuria, but feels pelvic pressure with urination. Hx of sexual activity. Denies vaginal discharge. No recent STI screening. Same partner for last 5 years. Decreased appetite. Drinking well and good uop. Deniesfever or diarrhea. PMH- Healthy. No Hosp/Surg/Meds. NKDA. Transferring care from [place]. H/o and SAB. Has Nexplanon x 2 yrs. SH-Lives in [place] with mother. Review of Systems Constitutional: Negative for fever. HENT: Negative for rhinorrhea and sore throat. Eyes: Negative for visual disturbance. Respiratory: Positive for cough. Negative for shortness of breath. Gastrointestinal: Positive for abdominal pain. Negative for diarrhea and vomiting. Musculoskeletal: Negative for back pain. Left side pain. Skin: Negative for rash. Psychiatric/Behavioral: Negative for behavioral problems. Objective Physical Exam Constitutional: General: She is not in acute distress (Comfortable. Easily answers questions.). HENT: Right Ear: Tympanic membrane normal. Left Ear: Tympanic membrane normal. Nose: No rhinorrhea. Mouth/Throat: Mouth: Mucous membranes are moist. Pharynx: Oropharynx is clear. Eyes: Conjunctiva/sclera: Conjunctivae normal. Cardiovascular: Rate and Rhythm: Normal rate and regular rhythm. Heart sounds: No murmur heard. Pulmonary: Effort: Pulmonary effort is normal. No respiratory distress. Breath sounds: Normal breath sounds. No wheezing or rales. Comments: Mild left rib cage pain with inspiration. Abdominal: General: Bowel sounds are normal. Palpations: Abdomen is soft. Tenderness: There is no abdominal tenderness. There is no guarding or rebound. Musculoskeletal: Cervical back: Neck supple. Comments: Mild tenderness to left lower lateral rib cage. Skin: General: Skin is warm. Capillary Refill: Capillary refill takes less than 2 seconds. Findings: No rash. Neurological: Mental Status: She is alert and oriented to person, place, and time. Psychiatric: Behavior: Behavior normal. Assessment/Plan Diagnoses and all orders for this visit: Influenza A Having cough, abdominal pain and vomiting. Vomiting has resolved. Mild sxs. Acting well and hydrated. Flu A positive, COVID rapid testing neg. Not in window for Tamiflu. Symptoms seem to be improving. -Symptomatic relief including (vaporizer, honey/lemon, elevation) discussed. -Acetaminophen prn. -Push fluids. -RTC or ED if respiratory distress, unable to take fluids, decreased u/o, no improvement, worse or concerns. - Influenza B (ID NOW Rapid Molecular) - Influenza A (ID NOW Rapid Molecular) - POCT COVID-19 Ag Mijares ID NOW Abdominal pain, unspecified abdominal location Recent lower abdominal pain and left side pain. No vaginal symptoms, but has pelvic pressure with urination. HCG neg. Will r/o STI. -GC/CT self swab. Venous STI labs. -HCG neg. UA c/w concentration (SG 1.030, tr bld, mild ketones, mod bili, tr protein). LE and Nitrite neg. -CBC, Chem Panel, CRP, Lipase. -Further plan based on results. - POCT , urine manually resulted Rib pain Seems musculoskeletal with pain on palpation and inspiration. H/o prolonged cough that is improving. -CXR. -T-spot. -Tylenol prn. -RTC if no improvement. Screening examination for STI -GC/CT self swab done. -Venous STI labs ordered. -Further plan based on results. Josefa May, serve as a scribe. I document services personally performed by Dr. Aristides Gomez, based on the patient's response to questions by provider and provider's statements to me. Josefa Cosby [employer] ([employer]) documented in this encounter Plan of Treatment Upcoming Encounters Date Type Department Care Team (Late st Contact Info) Description 05/22/2024 11:00 AM EDT Office Visit [facility] [address] [place] [phone] Nikki Glez [address] [place], [place] [phone] Scheduled Orders Name Type Priority Associated Diagnoses Orde r Schedule Chlamydia/N. Gonorrhoeae RNA, TMA, Urogenitial Microbiology Routine Abdominal pain, unspecified abdominal location Ordered: 03/14/2024 XR Chest 2 Views Imaging Routine Rib pain Expected: 03/14/2024, Expires: 03/14/2025 CBC auto differential Lab Routine Abdominal pain, unspecified abdominal location Expected: 03/14/2024 (Approximate), Expires: 03/14/2025 Comprehensive Metabolic Panel Lab Routine Abdominal pain, unspecified abdominal location Expected: 03/14/2024 (Approximate), Expires: 03/14/2025 Iron And Total Iron Binding Capacity Lab Routine Abdominal pain, unspecified abdominal location Expected: 03/14/2024, Expires: 03/14/2025 HIV-1/2 Antigen and Antibodies, Fourth Generation, with Reflexes Lab Routine Screening examination for STI Expected: 03/14/2024 (Approximate), Expires: 03/14/2025 Hepatitis B surface antigen Lab Routine Screening examination for STI Ordered: 03/14/2024 Hepatitis C Antibody with Reflex to HCV, RNA, Quantitative, Real-Time PCR Lab Routine Screening examination for STI Expected: 03/14/2024, Expires: 03/14/2025 RPR (Monitor) with Reflex to??Titer Lab Routine Screening examination for STI Expected: 03/14/2024, Expires: 03/14/2025 C-reactive Protein Lab Routine Abdominal pain, unspecified abdominal location Expected: 03/14/2024 (Approximate), Expires: 03/14/2025 Lipase Lab Routine Abdominal pain, unspecified abdominal location Expected: 03/14/2024, Expires: 03/14/2025 T-SPOT??.TB Lab Routine Rib pain Ordered: 03/14/2024 documented as of this encounter Procedures Procedure Name Priority Date/Time Associated Diagnosis Comments POCT URINALYSIS DIPSTICK Routine 03/14/2024 4:43 PM EST Abdominal pain, unspecified abdominal location POCT INFLUENZA B (ID NOW RAPID MOLECULAR) Routine 03/14/2024 4:02 PM EST Influenza A POCT INFLUENZA A (ID NOW RAPID MOLECULAR) Routine 03/14/2024 4:02 PM EST Influenza A POCT COVID-19 AG MIJARES ID NOW Routine 03/14/2024 4:02 PM EST Influenza A POCT , URINE Routine 03/14/2024 4:02 PM EST Abdominal pain, unspecified abdominal location documented in this encounter Results * (ABNORMAL) POCT urinalysis dipstick manually [...] ENTER/EDIT O RDERABLES Final Result * POCT COVID-19 Ag Mijares ID NOW (03/14/2024 4:02 PM EST) [facility] Coronavirus Antigen PCR Negative Negative, Indeterminate, None Detected, Invalid, Specimen unsatisfactory for evaluation, Weakly Positive Swab 03/14/2024 4:02 PM EST us Aristides Gomez MD POINT OF CARE TEST ENTER/EDIT O RDERABLES Final Result * (ABNORMAL) Influenza A (ID NOW Rapid Molecular) (03/14/2024 4:02 PM EST) [facility] Influenza A Positive( A) Negative, Indeterminate [facility] Swab 03/14/2024 4:02 PM EST us Aristides Gomez MD POINT OF CARE TEST ENTER/EDIT O RDERABLES Final Result Performing Organization Address City/[facility]/ZIP Co de Phone Number [facility] [address] [place] [phone] * Influenza B (ID NOW Rapid Molecular) (03/14/2024 4:02 PM EST) [facility] Influenza B Negative Negative, Indeterminate [facility] Swab 03/14/2024 4:02 PM EST us Aristides Gomez MD POINT OF CARE TEST ENTER/EDIT O RDERABLES Final Result Performing Organization Address [facility]/ZIP Co de Phone Number [facility] [address] [place] [phone] documented in this encounter Visit Diagnoses Diagnosis Influenza A- Primary Influenza with other respiratory manifestations Abdominal pain, unspecified abdominal location Rib pain Unspecified chest pain Screening examination for STI documented in this encounter
[2024-03-15 10:57] LABS: MANUAL DIFF FLAG NO
[2024-03-15 11:02] LABS: Basophils Percent Auto 0.2 % (0-2); Eosinophils Absolute Auto 0.4 X10*3/uL (0.0-0.4); Eosinophils Percent Auto 8.4 % (0-4); Hematocrit 42.3 % (37.0-47.0); Imm Gran Abs Auto 0.01 X10*3/uL (0.00-0.03); Imm Gran Pct Auto 0.2 % (0.0-0.4); Lymphocytes Absolute Auto 1.3 X10*3/uL (1.2-4.9); Mean Corpuscular HGB Conc 33.1 g/dl (31.0-35.0); Mean Corpuscular Hemoglobin 29.5 pg (27.0-33.0); Mean Corpuscular Volume 89.1 fL (80.0-98.0); Monocytes Absolute Auto 0.4 X10*3/uL (0.1-1.2); Monocytes Percent Auto 8.2 % (2-11); Neutrophils Absolute Auto 2.7 x10*3/uL (2.0-8.3); Platelet Count 186 X10*3/uL (160-400); Red Blood Count 4.75 X10*6/uL (4.20-5.50); Red Cell Distribution Width 12.8 % (11.0-16.0); White Blood Count 4.9 X10*3/uL (4.8-10.8)
[2024-03-15 11:26] LABS: Alanine Aminotransferase 16 U/L (0-31); Albumin Level 4.3 g/dL (3.5-5.0); Alkaline Phosphatase 67 U/L (39-117); Anion Gap 9 (12-20); Aspartate Amino Transferase 23 U/L (5-31); Bilirubin Total 0.2 mg/dL (0.0-1.0); Blood Urea Nitrogen 7 mg/dL (9-16); C Reactive Protein 0.48 mg/dL (< or = 0.50); Carbon Dioxide 25 mmol/L (22-29); Chloride 109 mmol/L (96-108); Estimated Glomerular Filt Rate > 60; Glucose Random 114 mg/dL (60-115); Iron 40 mcg/dL (30-160); Lipase 13 U/L (8-78); Percent Iron Saturation 13 % (15-50); Potassium 3.8 mmol/L (3.3-5.1); Sodium 139 mmol/L (135-145); Total Iron Binding Capacity 308 mcg/dL (228-428); Total Protein 7.4 g/dL (6.5-8.0); Unsaturated Iron Binding 268 ug/dL
[2024-03-15 11:40] LABS: HBsAGNum1 0.38 S/CO (0.00-0.99); HIV AB/AG Nonreactive (Nonreactive); HIV Num 1 0.06 S/CO (0.00-0.99); Hepatitis B Surface Antigen Negative (Negative); ~HepC Num1 0.09 S/CO (0.00-0.79); ~Hepatitis C Antibody Nonreactive (Nonreactive)
[2024-03-15 13:00] LABS: CT PCR NOT DETECTED (Not Detect.); NG PCR NOT DETECTED (Not Detect.)
[2024-03-17 12:38] LABS: RPR Rapid Plasma Reagin NON-REACTIVE (NON-REACTIVE)
[2024-03-18 10:48] LABS: TS Negative Control Passed; TS Panel A 0; TS Panel B 0; TS Positive Control Passed; TSpotTB Negative (Negative)
== END 2024-03-15 08:41 | disposition home or self-care (01) ==
LOC: HO.HHCL 08:40
PROVIDERS: Visit Provider Pediatrics
DX: R10.9 Unspecified abdominal pain (principal); Z11.3 Encounter for screening for infections with a predominantly sexual mode of transmission; R07.81 Pleurodynia
CPT/HCPCS: 71046; 80053; 83540; 83690; 85025; 86140; 86481; 86592; 86803; 87340; 87389; 87491; 87591

== ENCOUNTER → 2024-03-15 09:06 | Outpatient (BNV) | payer SELFPAY | PROVIDERS: Visit Provider Radiology Diagnostic Radiology | DX: R07.81 Pleurodynia (principal) | CPT/HCPCS: 71046 ==